=== PATIENT | female | born 1945 | race Caucasian/White ===

== ENCOUNTER → 2017-04-12 | Outpatient (CLI) | payer MEDICARE, BC ==
[~2017-04-12] MED LIST: ASA CHILDREN'S81 MG PO; COREG DPS6.25 MG PO; DELTASONE DPS1 MG PO; DUONEB DPS3 ML IH; HUMALOG U-100 UNITS/ SQ; KEFLEX-DPS500 MG PO; LIPITOR DPS10 MG PO; MONTELUKAST SOD10 MG PO; MUCINEX600 MG PO; NORVASC DPS10 MG PO; PRILOSEC DPS20 MG PO; PULMICORT0.5 MG/21 IH; SLO-BID DPS300 MG PO; TUDORZA PRESS400 MCG IH
== END | disposition home or self-care (01) ==
LOC: PTH.S 16:15
DX: J44.9 Chronic obstructive pulmonary disease, unspecified (principal)